=== PATIENT | male | born 1995 | race Two or more races ===

== ENCOUNTER 2021-01-03 08:30 | Outpatient (REF) | payer OTHER, SELFPAY ==
[2021-01-03 09:41] LABS: COVID-19 Test Negative (Negative)
== END 2021-01-03 08:31 | disposition home or self-care (01) ==
LOC: HO.LAB 08:30
PROVIDERS: Visit Provider Internal Medicine
DX: Z20.822 Contact with and (suspected) exposure to COVID-19 (principal)
CPT/HCPCS: 36415; 87635; C9803

== ENCOUNTER 2021-01-18 08:55 | Outpatient (REF) | payer OTHER, SELFPAY ==
[2021-01-18 09:19] LABS: COVID-19 Test Positive (Negative)
== END 2021-01-18 08:56 | disposition home or self-care (01) ==
LOC: HO.LAB 08:55
PROVIDERS: Visit Provider Internal Medicine
DX: Z20.822 Contact with and (suspected) exposure to COVID-19 (principal)
CPT/HCPCS: 36415; 87635; C9803

== ENCOUNTER 2021-06-28 10:46 | Emergency (ER) | payer OTHER, SELFPAY ==
[2021-06-28 11:54] VITALS: BP 139/92; PULSE 81; RESP 16; TEMP 37; O2SAT 99; BMI 26.7
--- NOTE | 2021-06-28 12:20 | ED.GENADULT ---
HPI - General Adult General Chief complaint: General Medical Stated complaint: sinus issue Time Seen by Provider: 06/28/21 12:17 Source: patient and family Mode of arrival: ambulatory Limitations: no limitations History of Present Illness HPI narrative: 25-year-old male presenting to the ED with complaints of nasal congestion/rhinorrhea/facial pain/swelling with generalized weakness for the past few weeks worse today. Reports that he has thick yellow/green malodorous nasal discharge. He has been having intermittent headaches. Denies any fevers, dizziness, headaches, change in vision, neck pain/stiffness, cough, sore throat, ear pain, nausea/vomiting/diarrhea, abdominal pain, rashes, recent travel or sick contacts or any other symptoms complaints or concerns at this time. Reports that he had COVID in the past he does not believe he has COVID today due to he does not have the similar symptoms when he had COVID and does not want to be tested for COVID today. MD complaint: URI symptoms Onset (ago): week(s) (Past few weeks worse today) Related Data Previous Rx's Medication Instructions Recorded amoxicillin 875 mg-potassium 1 tab PO BID 14 Days #28 tab 06/28/21 clavulanate 125 mg tablet (Augmentin) dexamethasone 6 mg tablet 6 mg PO ONCE #1 tab 06/28/21 (Decadron) Allergies Allergy/AdvReac Type Severity Reaction Status Date / Time No Known Allergies Allergy Verified 08/13/20 13:23 [No Known Allergies*] Review of Systems Review of Systems: Constitutional : No Weight loss, No Fever, No Chills, No Night Sweats, No Fatigue, No Malaise ENT/Mouth : Positive nasal congestion/rhinorrhea/sinus pain, No Hearing loss, No Ear Pain,No Hoarseness, No sore throat, No Swallowing Difficulty Eyes: No Eye Pain, No Swelling, No Redness, No Foreign Body, No Discharge, No Vision Changes Cardiovascular : No Chest Pain, No SOB, No Dyspnea on Exertion, No Orthopnea, No Edema, No Palpitations Respiratory : No Cough, No Sputum, No Wheezing, No Smoke Exposure, No Dyspnea Gastrointestinal : No Nausea, No Vomiting, No Diarrhea, No Constipation, No abdominal Pain, No Hematochezia, No Melena Genitourinary : no irregular bleeding, No Dysuria, No Urinary Frequency, No Hematuria, No Urinary Incontinence, No Urgency, No Flank Pain, No Urinary Flow Changes, No Hesitancy Musculoskeletal : No joint pain, No Myalgias, No Joint Swelling Skin : No Skin Lesions, No rash Neuro : No Weakness, No Numbness, No Paresthesias, No Loss of Consciousness, No Dizziness, No Headache Psych : No Anxiety/Panic, No Depression, No SI/HI/AH/VH, No Social Issues, Heme/Lymph: No Bruising, No Bleeding,No Lymphadenopathy Endocrine : No Polyuria, No Polydipsia, No Temperature Intolerance Yes all other systems are reviewed and are negative [facility] Past Medical History Attestation statement: The following information was validated with the patient. 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 Mother No problems noted. Brother Myocardial infarction Maternal Grandmother Stroke Acute CVA (cerebrovascular accident) Social History Social History Advance Directives: Yes Advance Directives Information Provided: Yes Advance Directives on File: No Physical Exam Vital Signs: Vital Signs: Last Vital Signs Temp 98.6 F 06/28/21 11:54 Pulse 81 06/28/21 11:54 Resp 16 06/28/21 11:54 BP 139/92 H 06/28/21 11:54 Pulse Ox 99 06/28/21 11:54 Body Mass Index 26.7 vital signs have been reviewed as normal and appeared to be correct. Blood pressure normal. Heart rate normal. Respiration rate normal. Temperature normal. Oxygen saturation normal. Appearance: Alert. Oriented X3. No acute distress. Head: Normal external exam. Normocephalic. Atraumatic. Eyes: PERRLA. EOMI. Conjunctiva and sclera normal. Eyelids normal. ENT: EAC normal. TM's Normal. Pharynx normal. Uvula midline. Moist mucous membranes. No trismus noted. No drooling noted. No muffled voice noted. Patient with tenderness to palpation to sinuses. Neck: Normal inspection. Neck supple. FROM. No adenopathy. Thyroid Normal. No meningeal signs. No neck mass noted. CVS: Normal heart rate and rhythm. Heart sound normal. Pulses normal throughout. No murmurs/rales/gallops. Respiratory: No respiratory distress. Painless inspiration. Breath sounds normal. No wheezes/rales/rhonchi noted. Chest nontender. No accessory muscle usage noted or decreased air movement noted. Back: Full range of motion noted. No rashes/lesion/induration/fluctuance or signs of infection noted. Skin: Skin warm and dry. Normal skin color. Normal skin turgor. No rashes/lesions/lacerations noted. Extremities: Extremities exhibit normal range of motion. Extremities nontender. Neuro: Oriented X 3. No motor deficit. No sensory deficit. Reflexes normal. Normal steady gait. No focal neuro deficits noted. Vascular: + radial pulses Normal cap refill. No cyanosis noted to upper extremity nails Course Course Course Narrative: Patient with what appears like a sinus infection for the past few weeks. Will DC home with antibiotics and symptomatic treatment instructions return if any new or worsening symptoms to follow up with primary care provider. Patient understands agrees with this plan. Medical Decision Making Lab Data Lab results reviewed: Yes I reviewed the patient's lab results. Discharge Plan Discharge Clinical Impression: Sinusitis Patient Disposition: Home, Self-Care Instructions: Sinusitis (ED) Prescriptions: New amoxicillin-pot clavulanate [Augmentin] 875-125 mg tablet 1 tab PO BID 14 Days Qty: 28 RF: 0 dexamethasone [Decadron] 6 mg tablet 6 mg PO ONCE Qty: 1 RF: 0 Referrals: Physician,Unknown J [Primary Care Provider] - 2 days (your pcp) Stand Alone Forms: Work/School Release Print Language: Citizen Of [place]
== END 2021-06-28 12:57 | disposition home or self-care (01) ==
PROVIDERS: Emergency Provider Emergency Medicine
DX: J32.9 Chronic sinusitis, unspecified (principal); Z79.899 Other long term (current) drug therapy
CPT/HCPCS: 99283

== ENCOUNTER 2021-08-20 07:14 | Outpatient (REF) | payer OTHER, SELFPAY | END 2021-08-20 07:15 | disposition home or self-care (01) | LOC: HO.HOSX 07:14 | PROVIDERS: Visit Provider Physician Assistant | DX: Z13.89 Encounter for screening for other disorder (principal) ==

== ENCOUNTER 2021-09-02 11:22 | Emergency (ER) | payer SELFPAY ==
[2021-09-02 13:25] VITALS: PULSE 82; RESP 18; TEMP 36.3; O2SAT 100; BMI 28.5
--- NOTE | 2021-09-02 13:25 | ED_ITS ---
HPI - Extremity Injury (Lower) General Chief Complaint: Extremity Injury, Lower Stated Complaint: R Knee Pain No Injury Time Seen by Provider: 09/02/21 13:25 Source: patient Mode of arrival: ambulatory Limitations: no limitations History of Present Illness complaint: other (joint pain) Onset (ago): week(s) (3) Injury: Right: knee Type of Injury: other (on his knees at work frequently) Place: work Severity: moderate Relieving factors: rest Exacerbating factors: movement and palpation Context: other (overuse and on knee at work) Associated symptoms: swelling Other symptoms: none Related Data Previous Rx's Medication Instructions Recorded cyclobenzaprine 10 mg tablet 10 mg PO TID PRN #14 tab 09/02/21 prednisone 20 mg tablet 40 mg PO DAILY 5 Days #10 tab 09/02/21 Allergies Allergy/AdvReac Type Severity Reaction Status Date / Time No Known Allergies Allergy Verified 09/02/21 13:24 [No Known Allergies*] Review of Systems Review of Systems: Constitutional : No Fever, No Chills ENT/Mouth : No Ear Pain, No Hoarseness, No sore throat Eyes: No Eye Pain, No Swelling, No Redness, No Foreign Body Cardiovascular : No Chest Pain, No SOB Respiratory : No Cough, No Dyspnea Gastrointestinal : No Nausea, No Vomiting, No Diarrhea, No abdominal Pain Genitourinary : No Dysuria, No Hematuria Musculoskeletal : positive joint pain, No Myalgias, No Joint Swelling Skin : No Skin lacerations, No rash Neuro : No Weakness, No Numbness, No Loss of Consciousness, No Dizziness, No Headache Psych : No Anxiety/Panic, No Depression Heme/Lymph: no easy bruising, no Lymphadenopathy Endocrine : No Polyuria, No Polydipsia All other systems reviewed and are negative [facility] Past Medical History Medical History Obesity (BMI 30-39.9) Surgical History 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 Mother No problems noted. Brother Myocardial infarction Maternal Grandmother Stroke Acute CVA (cerebrovascular accident) Social History Social History Housing: Apartment Patient Tobacco Use Status: Never used Tobacco Tobacco use type: Cigarette e-Cigarette/Vaping Use: Never Used Second Hand Smoke Exposure: No Advance Directives: No Advance Directives Information Provided: No Current occupational status: employed Physical Exam Vital Signs: Vital Signs: Last Vital Signs Temp 101.2 F H 09/02/21 14:11 Pulse 95 09/02/21 14:11 Resp 18 09/02/21 14:11 BP 124/58 L 09/02/21 14:11 Pulse Ox 97 09/02/21 14:11 BMI result Body Mass Index 28.5 Appearance: Alert. Oriented X3. No acute distress. Eyes: Pupils equal, round and reactive to light. ENT: Pharynx normal. Neck: Normal inspection. Neck supple. CVS: Normal heart rate and rhythm. Pulses normal. Respiratory: No respiratory distress. Breath sounds normal. Abdomen: Soft and nontender. Skin: Skin warm and dry. Normal skin color. Normal skin turgor. Extremities: No lower extremity edema. R knee mild ttp on patella very mild swelling over patella but no warmth or redness no joint effusion distal NV intact no calf ttp Neuro: Oriented X 3. No motor deficit. No sensory deficit. MDM - Extremity Injury (Lower) MDM Narrative Medical decision making narrative: 25 yo male R knee pain for weeks mild prepatellar swelling suspect bursitis no effusion no warmth no erythema to suggest joint infection - no tick bites - COVID swab and steroids/flexeril for traumatic buristis Lab Data Labs: Lab Results 09/02/21 Range/Units 13:30 COVID-19 ([facility]) Negative (Negative) COVID-19 Clin Com See Note Discharge Plan Discharge Clinical Impression: Bursitis Qualifiers: Bursitis location: knee Knee bursitis location: suprapatellar bursitis Laterality: right Qualified Code(s): M70.51 - Other bursitis of knee, right knee Patient Disposition: Home, Self-Care Instructions: Knee Bursitis (ED) Additional Instructions: return to ED for any worsening symptoms or concerns NEGATIVE COVID Prescriptions: New cyclobenzaprine 10 mg tablet 10 mg PO TID PRN (Reason: muscle spasm) Qty: 14 RF: 0 prednisone 20 mg tablet 40 mg PO DAILY 5 Days Qty: 10 RF: 0 Interventions: ED Discharge Assessment Last Done: 09/02/21 14:10 Discharge Date/Time: 09/02/21 14:16
[2021-09-02 13:51] LABS: COVID-19 Test Negative (Negative)
[2021-09-02 14:11] VITALS: BP 124/58; PULSE 95; RESP 18; TEMP 38.4; O2SAT 97
== END 2021-09-02 14:16 | disposition home or self-care (01) ==
LOC: HO.ED 14:15
PROVIDERS: Emergency Provider Emergency Medicine; PCP Internal Medicine
DX: M70.51 Other bursitis of knee, right knee (principal); Y93.9 Activity, unspecified; Z20.822 Contact with and (suspected) exposure to COVID-19
CPT/HCPCS: 36415; 87635; 99283; 99284

== ENCOUNTER → 2021-09-12 09:21 | Outpatient (BNVA) | payer OTHER, SELFPAY | PROVIDERS: PCP Internal Medicine; Visit Provider Physician Assistant ==

== ENCOUNTER → 2021-09-25 13:15 | Outpatient (BNVA) | payer OTHER, SELFPAY | PROVIDERS: PCP Internal Medicine; Visit Provider Orthopaedic Surgery ==

== ENCOUNTER 2021-10-23 08:23 | Outpatient (REF) | payer SELFPAY ==
--- NOTE | ~2021-10-23 | XR_ITS ---
EXAMINATION: XR HAND, RIGHT CLINICAL INFORMATION: Pain. COMPARISON: None TECHNIQUE: PA, lateral, and oblique views of the right hand. 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 No acute fracture, dislocation or subluxation seen. No soft tissues abnormalities seen, especially no abnormality seen along the amputated third digit XR/XR hand RT min 3V IMPRESSION: Unremarkable right hand exam
== END 2021-10-23 08:24 | disposition home or self-care (01) ==
LOC: HO.HOSX 08:23
PROVIDERS: Visit Provider Orthopaedic Surgery
DX: M79.641 Pain in right hand (principal); L60.9 Nail disorder, unspecified; S68.111D Complete traumatic metacarpophalangeal amputation of left index finger, subsequent encounter
CPT/HCPCS: 73130; 99212

== ENCOUNTER 2022-05-21 15:27 | Outpatient (REF) | payer SELFPAY ==
[2022-05-22 12:43] LABS: Influenza A PCR NEGATIVE (Negative); Influenza B PCR NEGATIVE (Negative); Resp Syncy Virus RNA Qual PCR NEGATIVE (Negative); SARS COV2 PCR INHOUSE NEGATIVE (Negative)
== END 2022-05-21 15:28 | disposition home or self-care (01) ==
LOC: HO.LNP 15:27
PROVIDERS: Visit Provider Emergency Medicine
DX: Z20.822 Contact with and (suspected) exposure to COVID-19 (principal); R68.89 Other general symptoms and signs
CPT/HCPCS: 0241U